=== PATIENT | male | born 1945 | race Caucasian/White ===

== ENCOUNTER 2021-12-28 08:06 | Observation (INO) ==
--- NOTE | 2021-12-05 10:50 | PAT Medication Instructions ---
Medication Instructions Date of Service December 05, 2021 Home Medications aspirin 81 mg tablet,delayed release (Adult Aspirin Regimen) 81 mg PO QAM finasteride 5 mg tablet (Proscar) 5 mg PO HS losartan 100 mg tablet 100 mg PO QPM omeprazole 40 mg capsule,delayed release 40 mg PO QAM simvastatin 20 mg tablet 20 mg PO QPM tamsulosin 0.4 mg capsule 0.4 mg PO QPM amino acids (Amino Acid capsule) 1 cap PO UD cetirizine 10 mg tablet (Zyrtec) 10 mg PO QAM etodolac 300 mg capsule 300 mg PO UD PRN trazodone 50 mg tablet 50 mg PO HS ASK your surgeon for instructions etodolac 300 mg capsule 300 mg PO UD PRN STOP taking 2 weeks before surgery amino acids (Amino Acid capsule) 1 cap PO UD DO NOT take the morning of surgery cetirizine 10 mg tablet (Zyrtec) 10 mg PO QAM Take morning of surgery With a small sip of water, OTHERWISE NOTHING TO EAT OR DRINK AFTER MIDNIGHT: aspirin 81 mg tablet,delayed release (Adult Aspirin Regimen) 81 mg PO QAM (unless directed otherwise by surgeon) omeprazole 40 mg capsule,delayed release 40 mg PO QAM Take evening before surgery finasteride 5 mg tablet (Proscar) 5 mg PO HS losartan 100 mg tablet 100 mg PO QPM simvastatin 20 mg tablet 20 mg PO QPM tamsulosin 0.4 mg capsule 0.4 mg PO QPM trazodone 50 mg tablet 50 mg PO HS Other Notes If you have any questions please call us at [phone] or [phone] or [phone] or [phone]
--- NOTE | 2021-12-10 09:04 | Anesthesiology Consultation ---
Date of Service December 10, 2021 Assessment & Plan (1) Encounter for pre-operative examination: - COVID screening: Per assessment on 12/10: No known COVID-19 positive contacts or current COVID-19 related symptoms. Travel screen- returned from travel to [place] 12/09. Patient vaccinated. At surgeon discretion if preop Covid testing being done. - Vascular telemedicine visit (11/05/21): "11/01/21: CTA: Patent EVAR with preserved IIAs. Residual sac 5.2 cm. No endoleak. 11/02/20: CTA: Patent EVAR with preserved IIAs. Residual sac 5.2 cm. No endoleak.. S/P EVAR with Cook Zenith device 10/04/[address] Canseco.. Patent EVAR with no endoleak and preserved IIAs. Continue daily 81 mg aspirin for antiplatelet. Continue 20 mg Zocor for dyslipidemia.RTC in 1 year" - Outpatient joint assessment: Pt currently scheduled for inpatient pathway. If surgeon requests review for outpatient joint pathway, patient is not recommended candidate for outpatient joint program from anesthesia standpoint. Chart Review Chart Review: Acceptable Risk for Surgery and Patient seen in Pre Admission Testing Teaching & Discussion Pre-Anesthesia Teaching/Discussion Notes: Instructed NPO after midnight before surgery,except medications with 15 cc of water. Medication instructions provided according to the PAT guidelines. History Surgery Operation Date: 12/28/21 12:20 Proposed Procedures p Right Total Knee Arthroplasty - Parminder Maloney MD Height/Weight Height: 5 ft 9.5 in Weight: 85 kg Allergies Allergy/AdvReac Type Severity Reaction Status Date / Time lisinopril AdvReac Cough Verified 12/04/21 13:25 Medications Home Medications Medication Instructions Recorded Confirmed Last Taken aspirin 81 mg tablet,delayed 81 mg PO QAM 11/02/20 12/04/21 Unknown release (Adult Aspirin Regimen) finasteride 5 mg tablet (Proscar) 5 mg PO HS 11/02/20 12/04/21 Unknown losartan 100 mg tablet 100 mg PO QPM 11/02/20 12/04/21 Unknown omeprazole 40 mg capsule,delayed 40 mg PO QAM 11/02/20 12/04/21 Unknown release simvastatin 20 mg tablet 20 mg PO QPM 11/02/20 12/04/21 Unknown tamsulosin 0.4 mg capsule 0.4 mg PO QPM 11/02/20 12/04/21 Unknown amino acids (Amino Acid capsule) 1 cap PO UD 12/04/21 12/04/21 Unknown cetirizine 10 mg tablet (Zyrtec) 10 mg PO QAM 12/04/21 12/04/21 Unknown etodolac 300 mg capsule 300 mg PO UD PRN Pain 12/04/21 12/04/21 Unknown trazodone 50 mg tablet 50 mg PO HS 12/04/21 12/04/21 Unknown Past Medical History Medical History AAA (abdominal aortic aneurysm) s/p stent (2020) Follows with [facility]/Dr. Canseco Bilateral primary osteoarthritis of knee BPH (benign prostatic hyperplasia) GERD (gastroesophageal reflux disease) Hearing deficit BL FELIPE HLD (hyperlipidemia) HTN (hypertension) Osteoarthritis Exercise / Class Metabolic Activity II 4-5 Yardwork/Stairs/Walk up hill Past Family History Family History Other No family history of adverse response to anesthesia Past Surgical History Surgical History History of AAA (abdominal aortic aneurysm) repair stent placement 09/2020 History of appendectomy History of colonoscopy History of hemorrhoidectomy Past Anesthesia History No Hx of Anesthesia Complications and No Family Hx of Anesthesia Complications History of PONV No Hx of PONV and No Hx of Motion Sickness Social History Smoking Status: Former smoker Do You Dip or Chew Tobacco: No Smoking End Date: Quit > 30 years ago Hx Alcohol Use: No Hx Substance Use: No substance use type: does not use Review of Systems Patient denies chest pain, shortness of breath, dyspnea on exertion, fever, chills, cough, wheezing, palpitations. Physical Exam Vital Signs VITALS/ BP 129/75 P 73 TEMP 97.8 SP02 94%RA RESP 18 PHYSICAL Full cervical extension range of motion. Full TMJ range of motion. TMD 3 finger breaths Mallampati Score 2 Dentition: missing molars, possible crown Lungs: clear throughout to auscultation Cardiac: regular rate and rhythm, no murmurs noted Spine: normal Carotid arteries: negative bruit Extremities: no edema Lab Results Anesthesia Preop Results Results Anesthesia Widget: WBC 8.12 K/ul (4.8-10.8) 12/10/21 Hgb 15.0 g/dl (14.0-18.0) 12/10/21 Hct 44.3 % (40.1-51.0) 12/10/21 Plt 230 K/uL (130-400) 12/10/21 Na 138 mmol/L (136-145) 12/10/21 K 4.0 mmol/L (3.5-5.1) 12/10/21 Cl 106 mmol/L (98-107) 12/10/21 CO2 25 mmol/L (21-32) 12/10/21 BUN 20 mg/dl (6-23) 12/10/21 Creat 1.04 mg/dl (0.6-1.4) 12/10/21 Glucose Level 98 mg/dl (70-99(Fasting)) 12/10/21 PT 10.7 Seconds (9.0-12.0) 12/10/21 PTT 24.7 Seconds (21.0-31.0) 12/10/21 INR 1.0 (0.9-1.1) 12/10/21 Blood Type A Positive 12/10/21 Antibody Screen NEGATIVE 12/10/21 Testing Electrocardiogram Date: 12/10/21 Findings: + NSR @ (67) Chest X-Ray Date: 12/10/21 Findings: + NAD COVID-19 Risk Screen Screening Information COVID-19 Screen Date: 12/10/21 Exposure 21 Days Family/Household +COVID Last 21 Days: No Exposure 10 Days Any COVID Exposure Last 10 Days: No Symptoms Last 10 Days Experienced COVID Sx Last 10 Days: No + COVID 0-90 Days COVID + in Last 0-90 Days: No
--- NOTE | 2021-12-22 17:30 | History and Physical Report ---
DATE OF ADMISSION: 12/28/2021. CHIEF COMPLAINT: Bilateral knee pain and discomfort, right side greater than left. HISTORY OF PRESENT ILLNESS: The patient is a 76-year-old gentleman and a brother of a previous patie nt of mine, Enrrique Ryder, who presents for surgical treatment of his knees. He has got a long histo ry of knee pain and discomfort that has gotten worse over the past year to year and a half. We then put shots in his knees, which helped some, but it has become less successful. The right knee is both ering more than the left. He hurts all the time. The more he is up and on his legs, the more it yaneli ts. Limps more as the day goes on. He would like to consider getting his knee fixed. PAST MEDICAL HISTORY: 1. Hypertension. 2. Elevated cholesterol. PAST SURGICAL HISTORY: Includes: 1. Appendectomy. 2. Hemorrhoid surgery. 3. Aortic aneurysm done at [facility] about a year and a half ago. ALLERGIES: LISINOPRIL. CURRENT MEDICATIONS: 1. Aspirin. 2. Proscar. 3. Losartan. 4. Omeprazole. 5. Simvastatin. 6. Tamsulosin. 7. Tramadol. 8. Trazodone. 9. Multivitamin. SOCIAL HISTORY: A 76-year-old male. He is from [place]. He is . Two children. Does not drink. FAMILY HISTORY: Noncontributory. REVIEW OF SYSTEMS: Significant for AAA repair at [facility] year and a half ago. He has done well fr om this. No chest pain or shortness of breath. No history of DVT or PE. PHYSICAL EXAMINATION: GENERAL: Shows a pleasant middle-aged male. Looks to be in good health. HEENT: Benign. NECK: Supple. No lymphadenopathy. LUNGS: Clear to auscultation. HEART: Regular rate and rhythm. ABDOMEN: Soft, nontender, nondistended. EXTREMITIES: Grossly neurovascularly intact except as follows. Examination of both knees revealed patient ambulates independently. He has got varus alignment to rafaela th knees. Examination of the right knee reveals varus alignment. He has a varus thrust with weightb earing. Tender over the medial joint line. Small knee effusion. Range of motion 5-125. No pain wi th hip motion. Examination of the left knee reveals similar varus deformity. Tender over the medial joint line. Sm all knee effusion. Range of motion 5-125. No instability. X-RAYS: Four views of both knees from today were reviewed. It shows advanced bilateral knee degener ative joint disease. Right side is slightly worse than the left. He has got complete loss of medial joint space. He has got tricompartment disease. ASSESSMENT: A 76-year-old gentleman with a history of abdominal aortic aneurysm repair in the past a t [facility] a year and a half ago with underlying hypertension, elevated cholesterol with advanced bi lateral knee degenerative joint disease. He has failed conservative care. The right knee is worse t berg the left knee, and he would like to start getting his knee fixed. PLAN: We are going to proceed with right knee replacement. The risks and benefits of this procedure were explained to the patient include but not limited to DVT, PE, , infection, neurological inj ury, vascular injury, bleeding problem, pain, limited range of motion, stiffness, failure to relieve symptoms, incomplete relief of symptoms, etc. The patient understands and desires to proceed. Infor med consent was obtained. He is . He is planning on going and staying with during elisha very. He will likely have [facility] as well. DVT prophylaxis will be aspirin twice a da y. Job ID: [id number]
[~2021-12-28 08:06] MED LIST: ACETAMINOPHEN 500 MG TAB PO SCH; BUPIVACAINE 0.5 % 5 MG/1 ML PF 10ML VIAL ONE; BUPIVACAINE LIPOSOME/PF 266 MG, BUPIVACAINE/EPINEPHRINE 50 ML, SODIUM CHLORIDE 0.9% 30 ... INFIL SCH; CeleBREX 200 MG CAP PO SCH; EPINEPHrine INJ 1 MG/ML AMP ONE; FAMOTIDINE 20 MG TAB PO SCH; LR 500ML BOLUS, THEN 15ML/HR IV SCH; LR 60ML/HR IV SCH; METOCLOPRAMIDE HCL 10 MG TABLET PO SCH; ROPIVACAINE 0.5% 5 MG/ML 30 ML VIAL ONE; TRANEXAMIC ACID 1,000 MG **IV Intra-op IV SCH; ceFAZolin 2000MG 2,000 MG/15 ML SYR IV SCH
--- NOTE | 2021-12-28 08:59 | History & Physical Bridge Note ---
Date of Service December 28, 2021 History & Physical Bridge Note I have examined the patient, reviewed the History & Physical and in the interval since the performance of the History & Physical I have noted the following changes of clinical significance: no changes noted
[2021-12-28] MEDS ORDERED: MIDAZOLAM HCL 1 MG/ML 2ML VIAL ONE (10:07)
[2021-12-28] MEDS ORDERED: fentaNYL citrate 100 MCG/2 ML VIAL ONE (10:07)
[2021-12-28] MEDS ORDERED: BUPIVACAINE LIPOSOME 1.3% 266 MG/20 ML VIAL ONE (11:11)
[2021-12-28] MEDS ORDERED: BUPIVACAINE/EPINEPHRINE 0.25% 1:200,000 30 ML VIAL ONE (11:11)
[2021-12-28] MEDS ORDERED: SODIUM CHLORIDE 0.9% PF 50 ML VIAL ONE (11:11)
[2021-12-28] MEDS ORDERED: ePHEDrine sulfate 50 MG/ML AMP IV PRN (11:33)
[2021-12-28] MEDS ORDERED: ATROPINE SULFATE 0.1 MG/ML 10ML SYR IV PRN (11:33)
[2021-12-28] MEDS ORDERED: LIDOCAINE 2% MPF LOCAL 5 ML VIAL INFIL ONE (12:41)
[2021-12-28] MEDS ORDERED: PROPOFOL IV EMULSION 10 MG/ML 20 ML VIAL IV ONE (12:41)
[2021-12-28] MEDS ORDERED: ePHEDrine sulfate 50 MG/ML AMP ONE (12:49)
[2021-12-28] MEDS ORDERED: PHENYLEPHRINE HCL 10 MG/ML VIAL ONE (12:49)
--- NOTE | 2021-12-28 13:10 | Operative Report ---
PG Post Operative Report Pre & Post Diagnosis Operation Date: 12/28/21 10:40 Pre-Op Diagnosis: Right Knee Degenerative Joint Disease Post-Op Diagnosis: Right Knee Degenerative Joint Disease I identified the patient and participated in the time-out.: Yes Procedure Operation Date: 12/28/21 10:40 Actual Procedures p Right Total Knee Arthroplasty(Right) - Parminder Maloney MD Surgeon Parminder Maloney MD Soil Scientist Clayton Chin PA-C Estimated Blood Loss 50 Findings Consistent with Post-Op Diagnosis Operative findings real advanced right knee DJD. Extensive grade 4 [id number] disease of the medial and patellofemoral compartments. He had a varus deformity to his knee. Moderate-sized joint effusion. Fluids 1400 cc Specimens Right knee sent for pathology Drains None Anesthesia Type Spinal MAC Complications none Disposition Accompanied Patient To Recovery: No Indications Patient is a 76-year-old gentleman has had a long history of gradually progressively increasing right knee pain discomfort. He has been through extensive conservative treatment which became less successful over time. X-rays show advanced right knee arthritis. He elected proceed with surgical treatment. Description of Procedure Operative implants consist of: 1 Biomet Vanguard size 70 right posterior stabilized femoral component. 2. Biomet size 75 tibial tray. 3. 10 mm posterior stabilized polyethylene insert. 4. 31 x 8 all Paller patella. The patient was taken the operating, identified, placed on the operating table supine position protectors were properly padded. IV antibiotics tried by anesthesia team. A spinal anesthetic and been implemented in the holding area along with an abductor canal block. Tate catheter was placed in sterile fashion. A right thigh tourniquet was then placed in the right lower extremities then prepped and draped in usual sterile fashion. Right leg was elevated exsanguinated with use of an Esmarch and the tourniquet was set at 300 mmHg. An anterior approach of the right knee was then performed to longitudinal incision centered over the patella. Sharp dissection was carried through subcutaneous tissue down the extensor mechanism. Medial parapatellar arthrotomy incision was made. Some subperiosteal dissection was carried out medially. The fat pad was resected from Neath patella tendon. Lateral patellofemoral ligament was released. Patella was subluxated laterally and the knee was flexed. The osteophytes were taken off distal femur. The ACL and PCL were then released from distal femur the tibia subluxated anteriorly. The external tibial alignment jig was then placed in the interface the tibia and adjusted 14 mm medially. Proximal tibial cut was made remove about a millimeter or 2 of bone from most deficient aspect medial tibial plateau. The tibia was then sized to a size 75. Attention drawn the femur. The distal femur examined the sharp drill. Intramedullary canal was suction. A right 6 degree valgus cutting guide was placed. Distal femoral cutting block was pinned in place. Distal femoral cut was made to take an additional 3 mm bone off distal femur. The femur was then sized to a size 70. The AP cutting block was pinned parallel to the epicondylar axis which was 4 degrees of external rotation. Anterior cut, anterior chamfer, posterior cut, posterior chamfer cuts were made. The box cutting guide was placed in a just slight lateral box cut was made. The knee was flexed. The remnants of the medial and lateral menisci were excised. The osteophytes were taken off the posterior aspect of the femur. Trial femoral component was placed. The tibial tray was pinned in maximum external rotation and the drill and stem punch were used to create defect in proximal tibia for the tibial tray. Knee was then trialed and the 10 mm insert fit most appropriately. Attention drawn the patella. The patella was cleaned of all soft tissues. Patella thickness measured 22 mm in thickness was cut down to 14. It was sized to a size 31 patella. The lug holes were drilled for the 31 patella. Lateral osteophytes removed. Patella button was placed. Knee was taken through range of motion patella tracked nicely with no thumbs test. Attention drawn to place the permanent components. Nupathe all trial components were removed. Bone plug was placed in the distal femur limit blood loss. Double batch Palacos G cement was mixed. Biomet Vanguard size 70 right posterior stabilized femoral component, size 75 tibial tray, a 10 mm posterior stabilized polyethylene insert, a 31 x 8 all Paller patella then cemented in place. Knee was brought out into full extension until cement hardened. Final cement check was then performed. Pericapsular tissues were injected with total of 100 cc of combination of 20 cc of Exparel, 30 cc normal saline, 50 cc of quarter percent Marcaine with epinephrine. Patient did receive 1 g tranexamic acid. The tourniquet was then let down for final turn time of 54 minutes. Hemostasis assured use electrocautery. Extensor mechanism closed with combination 1 PDS suture #1 Vicryl suture in [id number] fashion with extensor mechanism checked found to be intact the subcutaneous tissue then closed with 2 Dexon suture in buried knot fashion skin was closed skin daniela. Leg was then cleaned and dried a sterile dressing was Xeroform, 4 fours, sterile cast padding, Diomedes bandage were applied. Patient then transferred to the recovery room in stable condition. Patient tolerated procedure well no complications. Clayton Chin, my physician mailroom assistant, was present for the entire procedure. His assistance was essential and required for appropriate patient positioning, prepping and draping, surgical exposure, performing the technical details of the operation, placement the implants, closure of the wound, and placement of the sterile bandage. I attest to the content of the Intraoperative Record and any orders documented therein. Any exceptions are noted below.
--- NOTE | 2021-12-28 13:31 | XRay Report ---
XR knee RT 1 or 2V routine CLINICAL HISTORY: Postoperative evaluation. COMPARISON: Knee radiographs November 22, 2021. FINDINGS: Alignment of the total right knee arthroplasty is anatomic. There is no periprosthetic fra cture or unexpected radiopaque foreign body. There are skin daniela. IMPRESSION: Expected findings following total right knee arthroplasty. ACT 112: Negative or not required by law. Electronically signed by: Rupesh Sheridan M.D. 12/28/2021 1:30 PM
--- NOTE | 2021-12-28 14:21 | Anesthesiology Progress Note ---
Date of Service December 28, 2021 Anesthesia Post Procedure Vital Signs Vital Signs: Temp Pulse Pulse Resp BP Pulse Ox O2 Del Method 12/28/21 14:10 67 17 120/68 93 Room Air 12/28/21 14:00 36.6 C 68 20 127/74 93 Room Air 12/28/21 13:50 66 18 126/66 94 Room Air 12/28/21 13:40 65 16 127/67 94 Room Air 12/28/21 13:30 70 17 119/62 94 Oxymask 12/28/21 13:20 70 16 120/68 98 Oxymask 12/28/21 13:10 36.8 C 72 12 115/54 L 98 Oxymask 12/28/21 08:31 36.3 C L 74 20 150/87 H 96 Room Air O2 Flow Rate 12/28/21 14:10 12/28/21 14:00 12/28/21 13:50 12/28/21 13:40 12/28/21 13:30 4 12/28/21 13:20 6 12/28/21 13:10 8 12/28/21 08:31 Pain Intensity Right Knee: Pain Intensity: 5 Transfer of Care Handoff Completed per policy Notes Mental Status: alert / awake / arousable Patient Amnestic to Procedure: Yes Nausea / Vomiting: adequately controlled Pain: adequately controlled Airway Patency, RR, SpO2: stable & adequate BP & HR: stable & adequate Hydration State: stable & adequate Neuraxial Anesthesia: was administered and sensory block is resolving Anesthetic Complications: no major complications apparent
[2021-12-28] MEDS ORDERED: ALUMINUM/MAGNESIUM SUSP 30 ML UDC PO PRN (15:20)
[2021-12-28] MEDS ORDERED: NALOXONE HCL 0.4 MG/1 ML VIAL/CARP IV PRN (15:20)
[2021-12-28] MEDS ORDERED: METOCLOPRAMIDE HCL INJ 5 MG/ML 2 ML VIAL IV PRN (15:20)
[2021-12-28] MEDS ORDERED: MAGNESIUM HYDROXIDE SUSP 30 ML UDC PO PRN (15:20)
[2021-12-28] MEDS ORDERED: NON-FORMULARY MEDICATION (Amino Acids [Amino Acid] Capsule) PO SCH (15:20)
[2021-12-28] MEDS ORDERED: HYDROmorphone INJ 0.5 MG/0.5 ML SYR IV PRN (15:20)
[2021-12-28] MEDS ORDERED: bisacodyL 10 MG SUPP PR PRN (15:20)
[2021-12-28] MEDS ORDERED: ACETAMINOPHEN 500 MG TAB ONE (15:42)
[2021-12-28] MEDS ORDERED: KETOROLAC 30 MG/ML VIAL ONE (15:42)
[2021-12-28] MEDS: ACETAMINOPHEN 500 MG TAB PO SCH ×2 (15:44→20:23)
[2021-12-28] MEDS: KETOROLAC TROMETHAMINE 15 MG/ML VIAL IV SCH ×2 (15:45→20:23)
[2021-12-28] MEDS: SODIUM CHLORIDE 0.9% 1000ML 1,000 ML IV SCH (16:15)
[2021-12-28] MEDS: ASCORBIC ACID 500 MG TAB PO SCH (17:54)
[2021-12-28] MEDS: ceFAZolin 2000MG 2,000 MG/15 ML SYR IV SCH (19:09)
[2021-12-28] MEDS ORDERED: TRANEXAMIC ACID / 0.7% NACL 1,000 MG/100 ML BAG IV SCH (19:15)
[2021-12-28] MEDS: ONDANSETRON INJ 2 MG/ML 2 ML VIAL IV PRN (19:16)
[2021-12-28] MEDS: DOCUSATE SODIUM 100 MG CAP PO SCH (20:22)
[2021-12-28] MEDS: ASPIRIN 81 MG ECTAB PO SCH (20:22)
[2021-12-28] MEDS ORDERED: SIMVASTATIN 20 MG TAB PO SCH (21:00)
[2021-12-28] MEDS ORDERED: TAMSULOSIN HCL 0.4 MG CAP PO SCH (21:00)
[2021-12-28] MEDS ORDERED: FINASTERIDE 5 MG TAB PO SCH (21:00)
[2021-12-28] MEDS ORDERED: traZODone HCL 50 MG TAB PO SCH (21:00)
[2021-12-28] MEDS ORDERED: SENNA 8.6 MG TAB PO SCH (21:00)
[2021-12-28] MEDS ORDERED: LOSARTAN POTASSIUM 50 MG TAB PO SCH (21:00)
[2021-12-28] MEDS: oxyCODONE HCL IR 5 MG TAB (IMMEDIATE RELEASE) PO PRN (23:33)
[2021-12-29] MEDS: SODIUM CHLORIDE 0.9% 1000ML 1,000 ML IV SCH (02:16)
[2021-12-29] MEDS: ceFAZolin 2000MG 2,000 MG/15 ML SYR IV SCH (02:48)
[2021-12-29] MEDS: KETOROLAC TROMETHAMINE 15 MG/ML VIAL IV SCH ×2 (02:48→08:32)
[2021-12-29] MEDS: ONDANSETRON INJ 2 MG/ML 2 ML VIAL IV PRN ×2 (02:57→10:26)
[2021-12-29] MEDS: ACETAMINOPHEN 500 MG TAB PO SCH (05:42)
[2021-12-29] MEDS ORDERED: dexAMETHasone 10 MG in SYRINGE 0 ML IV SCH (08:00)
[2021-12-29] MEDS: ASPIRIN 81 MG ECTAB PO SCH (08:20)
[2021-12-29] MEDS: DOCUSATE SODIUM 100 MG CAP PO SCH (08:20)
[2021-12-29] MEDS: ASCORBIC ACID 500 MG TAB PO SCH (08:21)
[2021-12-29] MEDS: oxyCODONE HCL IR 5 MG TAB (IMMEDIATE RELEASE) PO PRN (08:31)
[2021-12-29 08:53] LABS: Hemoglobin 11.5 g/dl (14.0-18.0); Mean Corpuscular Hgb Conc 33.8 g/dL (32.0-36.0); Mean Corpuscular Volume 94.7 fL (80.0-100.0); Mean Platelet Volume 9.4 fL (9.4-12.4); Platelet Count 185 K/uL (130-400); RDW Coefficient of Variation 12.9 % (11.5-14.5); RDW Standard Deviation 44.9 fL (36.4-46.3); Red Blood Count 3.59 M/uL (4.63-6.08); White Blood Count 9.34 K/ul (4.8-10.8)
[2021-12-29] MEDS ORDERED: CETIRIZINE HCL 10 MG TABLET PO SCH (09:00)
[2021-12-29] MEDS ORDERED: DOCUSATE SODIUM/SENNA 50/8.6MG TAB PO SCH (09:00)
[2021-12-29] MEDS ORDERED: PANTOprazole 40 MG TAB PO SCH (09:00)
[2021-12-29] MEDS ORDERED: MULTIVITAMIN TAB PO SCH (09:00)
--- NOTE | 2021-12-29 09:03 | Progress Notes ---
DATE OF SERVICE: 12/29/2021. SUBJECTIVE: A 76-year-old gentleman, postoperative day 1 from right knee replacement. He is doing p retty well. The pain has been controlled. No chest pain or shortness of breath. Not feeling dizzy or lightheaded. OBJECTIVE: VITAL SIGNS: Temperature is 36.5. Vital signs are stable. GENERAL: Shows a pleasant, elderly male. He is sitting up in bed this morning, looks pretty comfort able. LUNGS: Clear to auscultation. HEART: Has a regular rate and rhythm. ABDOMEN: Soft, nontender, nondistended. EXTREMITIES: Grossly neurovascularly intact except as follows: Examination of the right leg reveals the dressing to be clean, dry and intact. Leg is well aligned. He can dorsiflex and plantarflex hi s foot appropriately. He can do a straight leg raise, but takes quite a bit of effort. No pain with hip motion. LABORATORY DATA: Hemoglobin is pending. Electrolytes are pending. ASSESSMENT: A 76-year-old gentleman, postoperative day 1 from right knee replacement, clinically doi ng well. He looks good. Pain is controlled. He is neurologically intact. PLAN: 1. DVT prophylaxis includes thigh-high TEDs, SCDs, and aspirin twice a day. 2. PT/OT, weightbear as tolerated. Right total knee protocol. 3. Pain control, doing okay with current pain regimen. 4. Disposition: Plan to discharge to home with some home health if he does okay in therapy today. Job ID: [id number]
[2021-12-29 09:37] LABS: BUN Creatinine Ratio 17.7 (10-20); Calcium 7.8 mg/dl (8.5-10.1); Creatinine Clr Calc Pharmacy 65.5 ml/min; Est GFR (Non-African American) 75.9 ml/min; Potassium 3.8 mmol/L (3.5-5.1)
--- NOTE | 2021-12-31 07:48 | Discharge Summary ---
Date of Service December 31, 2021 Discharge Data Procedures Performed Operation Date: 12/28/21 10:40 Actual Procedures p Right Total Knee Arthroplasty(Right) - Parminder Maloney MD Hospital Course (1) Status post total right knee replacement: This is a 76 year old patient admitted on 12/28/21 and underwent total knee arthroplasty. He tolerated the procedure well and there were no complications. Transferred to the PACU post op and later to the orthopedic floor for further care. He was given ancef for antibiotic prophylaxis. He was also given JACY stockings, SCDs, and aspirin for DVT prophylaxis. Hemoglobin, hematocrit, and vital signs were monitored during his hospital stay and remained stable. Did not require any blood transfusions. There were no complications during his hospital stay. By post op day #1 the patient was tolerating a regular diet, pain was reasonably controlled with oral pain medicine, and he was participating in physical therapy. On post op day #1 the patient was discharged home and set up with home health care. He was given printed discharge instructions including prescriptions for extra strength tylenol, aspirin, ketorolac, zofran, senokot, flomax, and oxycodone. Continue physical therapy, weight bearing as tolerated. Continue JACY stockings. Follow up approximately 2 weeks post op or sooner if there are problems or concerns. Coding Level of Care Code None Diagnoses Status post total right knee replacement Z96.651
== END 2021-12-29 13:37 | disposition home health service (06) ==
LOC: PACUINP 08:06 → ASU 08:06 → 3W 16:13

== ENCOUNTER 2022-06-17 08:24 | Observation (INO) ==
--- NOTE | 2022-05-28 09:21 | PAT Medication Instructions ---
Medication Instructions Date of Service May 28, 2022 Home Medications Medication Instructions Recorded amoxicillin 500 mg tablet 2,000 mg PO ONCE #4 tabs 05/27/22 finasteride 5 mg tablet (Proscar) 5 mg PO HS losartan 100 mg tablet 100 mg PO QPM omeprazole 40 mg capsule,delayed release 40 mg PO QAM simvastatin 20 mg tablet 20 mg PO QPM cetirizine 10 mg tablet (Zyrtec) 10 mg PO QAM trazodone 50 mg tablet 50 mg PO HS amoxicillin 500 mg tablet 2,000 mg PO ONCE aspirin 81 mg tablet,delayed release (Hollie Low Dose Aspirin) 81 mg PO QAM tamsulosin 0.4 mg capsule (Flomax) 0.4 mg PO HS Continue as directed amoxicillin 500 mg tablet 2,000 mg PO ONCE (prior to procedure) DO NOT take the morning of surgery cetirizine 10 mg tablet (Zyrtec) 10 mg PO QAM Take morning of surgery With a small sip of water, OTHERWISE NOTHING TO EAT OR DRINK AFTER MIDNIGHT: omeprazole 40 mg capsule,delayed release 40 mg PO QAM aspirin 81 mg tablet,delayed release (Hollie Low Dose Aspirin) 81 mg PO QAM (continue as normal unless told otherwise by surgeon) Take evening before surgery finasteride 5 mg tablet (Proscar) 5 mg PO HS losartan 100 mg tablet 100 mg PO QPM simvastatin 20 mg tablet 20 mg PO QPM trazodone 50 mg tablet 50 mg PO HS tamsulosin 0.4 mg capsule (Flomax) 0.4 mg PO HS Other Notes If you have any questions please call us at [phone] or [phone] or [phone] or [phone]
--- NOTE | 2022-06-12 09:11 | Anesthesiology Consultation ---
Date of Service June 12, 2022 Assessment & Plan (1) Encounter for pre-operative examination: - S vascular 11/05/21: "...AAA reached surgical size and underwent EVAR with Cook Zenith device 10/04/[address] Canseco. He had a Type 2 endoleak on completion angio; however, resolved on 1 month post-op CTA...Patent EVAR with no endoleak and preserved IIAs. Continue daily 81 mg aspirin for antiplatelet. Continue 20 mg Zocor for dyslipidemia. RTC in 1 year..." - s/p R TKA 12/28/21 SAB L3-L4 1 attempt + PNB. - Outpatient joint assessment: Patient is currently scheduled for inpatient pathway. If re-evaluated pending system levels during current pandemic/surgeon requests outpatient pathway, patient is not recommended candidate for outpatient joint program from anesthesia standpoint. Chart Review Chart Review: Acceptable Risk for Surgery and Patient seen in Pre Admission Testing Teaching & Discussion Pre-Anesthesia Teaching/Discussion Notes: Instructed NPO after midnight before surgery, except medications with 15 cc of water. Medication instructions provided according to the PAT guidelines. History Surgery Operation Date: 06/17/22 12:45 Proposed Procedures p Left Total Knee Arthroplasty - Parminder Maloney MD Height/Weight Height: 5 ft 9 in Weight: 81.647 kg Allergies Allergy/AdvReac Type Severity Reaction Status Date / Time lisinopril AdvReac Cough Verified 05/27/22 09:13 Medications Home Medications Medication Instructions Recorded Confirmed Last Taken finasteride 5 mg tablet (Proscar) 5 mg PO HS 11/02/20 05/27/22 12/27/21 21:00 losartan 100 mg tablet 100 mg PO QPM 11/02/20 05/27/22 12/27/21 21:00 omeprazole 40 mg capsule,delayed 40 mg PO QAM 11/02/20 05/27/22 12/28/21 06:30 release simvastatin 20 mg tablet 20 mg PO QPM 11/02/20 05/27/22 12/27/21 21:00 cetirizine 10 mg tablet (Zyrtec) 10 mg PO QAM 12/04/21 05/27/22 12/27/21 08:00 trazodone 50 mg tablet 50 mg PO HS 10/11/22 04/03/23 11/03/22 21:00 amoxicillin 500 mg tablet 2,000 mg PO ONCE #4 tabs 05/27/22 Unknown aspirin 81 mg tablet,delayed 81 mg PO QAM 05/27/22 05/27/22 Unknown release (Hollie Low Dose Aspirin) tamsulosin 0.4 mg capsule (Flomax) 0.4 mg PO HS 05/27/22 05/27/22 Unknown Past Medical History Medical History (Updated 06/12/22 @ 09:21 by Vilma Mcmillan PA-C) AAA (abdominal aortic aneurysm) s/p stent (2020) Follows with [facility] vascular/Dr. Canseco BPH (benign prostatic hyperplasia) GERD (gastroesophageal reflux disease) controlled, stable per pt Hearing deficit BL FELIPE HLD (hyperlipidemia) HTN (hypertension) controlled, stable per pt Prediabetes Patient denies h/o stroke, seizures, heart attack, heart failure, blood clots or blood transfusions. Exercise / Class Metabolic Activity II 4-5 Yardwork/Stairs/Walk up hill (denies chest discomfort or shortness of breath with 1 FOS) Past Family History Family History Other No family history of adverse response to anesthesia Past Surgical History Surgical History History of AAA (abdominal aortic aneurysm) repair stent placement 09/2020 History of appendectomy History of colonoscopy History of hemorrhoidectomy History of total right knee replacement Past Anesthesia History No Hx of Anesthesia Complications and No Family Hx of Anesthesia Complications History of PONV History of PONV (occasional nausea) and Hx of Motion Sickness Social History Smoking Status: Former smoker tobacco type: cigarettes Do You Dip or Chew Tobacco: No Smoking End Date: MORE THAN 30 YEARS AGO Hx Alcohol Use: Yes Alcohol type: beer alcohol intake frequency: other Alcohol Intake Frequency Comment: RARELY Hx Substance Use: No substance use type: does not use Review of Systems Patient denies chest pain, shortness of breath, dyspnea on exertion, snoring, witnessed apneas, fever, chills, cough, wheezing, or palpitations. Physical Exam Vital Signs Vitals BP 128/73 P 75 TEMP 97.4 SP02 94% on RA RESP 18 Physical Full cervical extension range of motion without pain TMD 3.5 finger breadths Mallampati Score 2 Dentition: several caps, denies chipped or loose teeth, implants or bridges Lungs: normal respiratory effort. Clear throughout to auscultation, no adventitious breath sounds Cardiac: regular rate and rhythm, no murmurs noted Carotid arteries: negative bruit bilat Lab Results Anesthesia Preop Results Results Anesthesia Widget: WBC 6.28 K/ul (4.8-10.8) 06/12/22 Hgb 14.4 g/dl (14.0-18.0) 06/12/22 Hct 42.5 % (42.0-52.0) 06/12/22 Plt 240 K/uL (130-400) 06/12/22 Na 137 mmol/L (136-145) 06/12/22 K 3.9 mmol/L (3.5-5.1) 06/12/22 Cl 107 mmol/L (98-107) 06/12/22 CO2 24 mmol/L (21-32) 06/12/22 BUN 17 mg/dl (6-23) 06/12/22 Creat 0.92 mg/dl (0.6-1.4) 06/12/22 Glucose Level 122 mg/dl (70-99(Fasting)) H 06/12/22 PT 10.8 Seconds (9.0-12.0) 06/12/22 PTT 25.1 Seconds (21.0-31.0) 06/12/22 INR 1.0 (0.9-1.1) 06/12/22 Blood Type A Positive 06/12/22 Antibody Screen NEGATIVE 06/12/22 Testing Electrocardiogram Date: 12/10/21 NSR, rate 67 bpm Chest X-Ray Date: 12/10/21 No lines and tubes are seen. The cardiomediastinal silhouette is normal. The lungs are clear. No evidence of pleural effusion or pneumothorax. Degenerative changes are seen in the spine. IMPRESSION: No acute chest disease. Echocardiogram Date: 08/25/19 EF 55-59% No LV segmental wall motion abnormalities Aortic root mildly enlarged, aortic arch mildly dilated Mild aortic valve regurgitation Mild tricuspid regurgitation Grade I diastolic dysfunction Other Testing CTA abdomen pelvis 11/01/21 Status post EVAR. No stent graft migration or endoleak. Aneurysm sac is unchanged in size from 11/02/2020 COVID-19 Risk Screen Screening Information COVID-19 Screen Date: 06/12/22 Exposure 21 Days Family/Household +COVID Last 21 Days: No Exposure 10 Days Any COVID Exposure Last 10 Days: No Symptoms Last 10 Days Experienced COVID Sx Last 10 Days: No + COVID 0-90 Days COVID + in Last 0-90 Days: No
[~2022-06-17 08:24] MED LIST changes: -BUPIVACAINE LIPOSOME/PF 266 MG, BUPIVACAINE/EPINEPHRINE 50 ML, SODIUM CHLORIDE 0.9% 30 ... INFIL SCH; +BUPIVACAINE LIPOSOME/PF 266 MG, BUPIVACAINE/EPINEPHRINE 50 ML, SODIUM CHLORIDE 0.9% PF ... INFIL SCH; -EPINEPHrine INJ 1 MG/ML AMP ONE; +dexAMETHasone**PF** 10 MG/ML VIAL IV SCH
--- NOTE | 2022-06-17 08:50 | History & Physical Bridge Note ---
Date of Service June 17, 2022 History & Physical Bridge Note I have examined the patient, reviewed the History & Physical and in the interval since the performance of the History & Physical I have noted the following changes of clinical significance: no changes noted
[2022-06-17] MEDS ORDERED: PROPOFOL IV EMULSION 10 MG/ML 20 ML VIAL IV ONE (09:05)
[2022-06-17] MEDS ORDERED: MIDAZOLAM HCL 1 MG/ML 2ML VIAL ONE ×2 (09:05→11:36)
[2022-06-17] MEDS ORDERED: ONDANSETRON INJ 2 MG/ML 2 ML VIAL ONE (09:05)
[2022-06-17] MEDS ORDERED: LIDOCAINE 2% MPF LOCAL 5 ML VIAL ONE (09:05)
[2022-06-17] MEDS ORDERED: fentaNYL citrate PF 100 MCG/2 ML VIAL ONE (09:05)
[2022-06-17] MEDS ORDERED: ONDANSETRON INJ 2 MG/ML 2 ML VIAL IV PRN ×2 (09:33→14:35)
[2022-06-17] MEDS ORDERED: ATROPINE SULFATE 0.1 MG/ML 10ML SYR IV PRN (09:33)
[2022-06-17] MEDS ORDERED: fentaNYL citrate PF 100 MCG/2 ML VIAL IV PRN (09:33)
[2022-06-17] MEDS ORDERED: ePHEDrine sulfate 50 MG/ML AMP IV PRN (09:33)
[2022-06-17] MEDS ORDERED: SODIUM CHLORIDE 0.9% PF 50 ML VIAL ONE (10:13)
[2022-06-17] MEDS ORDERED: BUPIVACAINE/EPINEPHRINE 0.25% 1:200,000 30 ML VIAL ONE (10:13)
[2022-06-17] MEDS ORDERED: BUPIVACAINE LIPOSOME 1.3% 266 MG/20 ML VIAL ONE (10:13)
--- NOTE | 2022-06-17 12:15 | Operative Report ---
PG Post Operative Report Pre & Post Diagnosis Operation Date: 06/17/22 10:40 Pre-Op Diagnosis: Left Knee Degenerative Joint Disease Post-Op Diagnosis: Left Knee Degenerative Joint Disease I identified the patient and participated in the time-out.: Yes Procedure Operation Date: 06/17/22 10:40 Actual Procedures p Left Total Knee Arthroplasty(Left) - Parminder Maloney MD Surgeon Parminder Maloney MD Production Hand Clayton Chin PA-C Estimated Blood Loss 50 Findings Consistent with Post-Op Diagnosis Operative findings reveal advanced left knee DJD. He had extensive grade 4 [id number] disease of the medial and patellofemoral compartments. He had a varus deformity to his knee with a slight flexion contracture and large knee joint effusion. Specimens Left knee sent for pathology Anesthesia Type Spinal MAC Complications none Indications Patient 77-year-old fairly active gentleman said a long history of bilateral knee pain discomfort. He has been through extensive conservative treatment over the years with just became less successful over time. He has right knee replaced about 5 and half months ago and is done well from this. He continued be limited by left knee pain discomfort. He elected proceed with left total knee arthroplasty. Description of Procedure Operative implants consist of: 1. Biomet Vanguard size 70 left posterior stabilized femoral component. 2. Biomet size 75 tibial tray. 3. 12 mm posterior stabilized polyethylene insert. 4. 31 x 8 all poly patella. The patient was taken the operating, identified, and placed on the operating table supine position protectors were properly padded. IV antibiotics tried by anesthesia team. A spinal anesthetic and abductor canal block had been provided in the holding area. Tate catheter was placed in sterile fashion. Left atrium was then placed in the left lower extremities then prepped and draped in usual sterile fashion. The left leg was elevated exsanguinated with use of an Esmarch in terms playset 300 mmHg. An anterior approach left knee was then performed to longitudinal incision centered over the patella. Sharp dissection was carried through subcutaneous tissue down to the extensor mechanism. A medial parapatellar art hrotomy incision was made. Some subperiosteal dissection skin medially. The fat pad was dissected from Neath patella tendon. Lateral patellofemoral ligament was released. The patella subluxated laterally and the knee was flexed. The osteophytes taken on distal femur. The ACL and PCL were then released from distal femur the tibia subluxated anteriorly. External tibial alignment jig was then placed in the interface the tibia and adjusted 14 mm medially. Proximal tibial cut was made remove about 2 mm of bone from the most deficient aspect medial tibial plateau. The tibia was sized to a size 75. Some osteophytes taken off medial and posterior medially. Attention drawn the femur. The distal femur was entered with a sharp drill. Intramedullary canal was suction. The left 6 degree valgus cutting guide was placed. Distal femoral cutting block was pinned in place. Distal femoral cut was made to take an additional 3 mm of bone off distal femur. The femur was then sized to a size 70. The AP cutting block was pinned parallel to the epicondylar axis which was 5 degrees of external rotation. The anterior cut, anterior chamfer, posterior cut, posterior chamfer cuts were made. The box cutting guide was placed in just slight lateral and the box cut was made. The knee was flexed. The remnants of the medial and lateral menisci were excised. The osteophyte taken off the post erior aspect the femur. A trial femoral component was placed. The tibial tray was pinned in maximum external rotation and the drill and stem punch were used to create defect in proximal tibia for the tibial tray. The knee was then trialed and the 12 mm insert fit most appropriately. Attention drawn the patella. The patella was cleaned of all soft tissues. Patella thickness measured 22 mm in thickness was cut down to 13. Was sized to a size 31 patella. The lug holes were drilled for the 31 patella. The lateral osteophyte was removed. Patella button was placed. Knee was taken through range of motion patella tracked nicely with no thumbs test. Attention drawn to place the permanent components. All trial components were removed. Bone plug was placed in the distal femur limit blood loss. Double batch Palacos G cement was mixed. Biomet Vanguard size 70 left posterior stabilized femoral component, size 75 tibial tray, a 12 mm posterior stabilized polyethylene insert, and a 31 x 8 all Paller patella then cemented in place. Knee was brought out into full extension till cement hardened. Final cement check was then performed. Pericapsular tissues were injected with total 100 cc of combination of 20 cc of Exparel, 30 cc normal saline, 50 cc of quarter percent Marcaine with epinephrine. Patient did receive 1 g tranexamic acid. The tourniquet was then let down for final tourniquet time 56 minutes. Hemostasis assured use electrocautery. Extensor mechanism then closed with combination 1 PDS suture #1 Vicryl suture in a [id number] fashion. Extensor mechanism checked found to be intact with subcutaneous tissues then closed with 2 Dexon suture in a buried interrupted fashion skin was closed skin daniela. Leg was then cleaned and dried and sterile dressing was Xeroform, 4 fours, sterile cast padding, Diomedes bandage were applied. Patient was then transferred to the recovery room in stable condition. Patient tolerated procedure well and there were no complications. Clayton Chin, my physician technology assistant, was present for the entire procedure. His assistance was essential and required for appropriate patient positioning, prepping and draping, surgical exposure, performing the technical details of the operation, placement the implants, closure of the wound, and placement of the sterile bandage. I attest to the content of the Intraoperative Record and any orders documented therein. Any exceptions are noted below.
--- NOTE | 2022-06-17 13:59 | XRay Report ---
XR knee LT 1 or 2V routine CLINICAL HISTORY: Surgical Post Op COMPARISON: Knee radiographs May 23, 2022. FINDINGS: Alignment of the total left knee arthroplasty is anatomic. There is no periprosthetic frac ture. No unexpected radiopaque foreign bodies. There are skin daniela. IMPRESSION: Expected findings following total left knee arthroplasty. ACT 112: Negative or not required by law. Electronically signed by: Rupesh Sheridan M.D. 06/17/2022 1:58 PM
--- NOTE | 2022-06-17 14:09 | Anesthesiology Progress Note ---
Date of Service June 17, 2022 Anesthesia Post Procedure Vital Signs Vital Signs: Temp Pulse Pulse Resp BP Pulse Ox O2 Del Method 06/17/22 13:55 97.5 F L 68 16 108/69 93 Room Air 06/17/22 13:45 62 18 124/68 95 Room Air 06/17/22 13:35 65 16 116/67 95 Room Air 06/17/22 13:25 67 20 114/63 94 Room Air 06/17/22 13:15 67 14 111/65 94 Room Air 06/17/22 13:05 66 20 109/63 93 Room Air 06/17/22 12:55 63 14 100/59 L 93 Room Air 06/17/22 12:45 63 14 94/55 L 93 Room Air 06/17/22 12:35 78 18 109/64 92 Room Air 06/17/22 12:25 78 18 120/73 94 Room Air 06/17/22 12:16 97.0 F L 72 16 111/68 98 Oxymask 06/17/22 09:11 97.5 F L 71 20 155/88 H 95 Room Air O2 Flow Rate 06/17/22 13:55 06/17/22 13:45 06/17/22 13:35 06/17/22 13:25 06/17/22 13:15 06/17/22 13:05 06/17/22 12:55 06/17/22 12:45 06/17/22 12:35 06/17/22 12:25 06/17/22 12:16 6 06/17/22 09:11 Pain Intensity Left Knee: Pain Intensity: 2 Transfer of Care Handoff Completed per policy Notes Mental Status: alert / awake / arousable and participated in evaluation Patient Amnestic to Procedure: Yes Nausea / Vomiting: adequately controlled Pain: adequately controlled Airway Patency, RR, SpO2: stable & adequate BP & HR: stable & adequate Hydration State: stable & adequate Neuraxial Anesthesia: was administered and sensory block is resolving Anesthetic Complications: no major complications apparent and Pt Satisfied with anesthetic care
[2022-06-17] MEDS ORDERED: MAGNESIUM HYDROXIDE SUSP 30 ML UDC PO PRN (14:35)
[2022-06-17] MEDS ORDERED: ALUMINUM/MAGNESIUM SUSP 30 ML UDC PO PRN (14:35)
[2022-06-17] MEDS ORDERED: bisacodyL 10 MG SUPP PR PRN (14:35)
[2022-06-17] MEDS ORDERED: METOCLOPRAMIDE HCL INJ 5 MG/ML 2 ML VIAL IV PRN (14:35)
[2022-06-17] MEDS ORDERED: NALOXONE HCL 0.4 MG/1 ML VIAL/CARP IV PRN (14:35)
[2022-06-17] MEDS ORDERED: HYDROmorphone INJ 0.5 MG/0.5 ML SYR IV PRN (14:35)
[2022-06-17] MEDS ORDERED: MELATONIN 3 MG TAB PO PRN (14:40)
[2022-06-17] MEDS: SODIUM CHLORIDE 0.9% 1000ML 1,000 ML IV SCH (14:57)
[2022-06-17] MEDS: ceFAZolin 2000MG 2,000 MG/15 ML SYR IV SCH (17:26)
[2022-06-17] MEDS: KETOROLAC TROMETHAMINE 15 MG/ML VIAL IV SCH (17:29)
[2022-06-17] MEDS: ASCORBIC ACID 500 MG TAB PO SCH (17:31)
[2022-06-17] MEDS: ACETAMINOPHEN 500 MG TAB PO SCH (17:31)
[2022-06-17] MEDS ORDERED: TRANEXAMIC ACID / 0.7% NACL 1,000 MG/100 ML BAG IV SCH (18:15)
[2022-06-17] MEDS ORDERED: SIMVASTATIN 20 MG TAB PO SCH (21:00)
[2022-06-17] MEDS ORDERED: traZODone HCL 100 MG TAB PO SCH (21:00)
[2022-06-17] MEDS ORDERED: LOSARTAN POTASSIUM 50 MG TAB PO SCH (21:00)
[2022-06-17] MEDS ORDERED: SENNA 8.6 MG TAB PO SCH ×2 (21:00)
[2022-06-17] MEDS ORDERED: TAMSULOSIN HCL 0.4 MG CAP PO SCH (21:00)
[2022-06-17] MEDS ORDERED: FINASTERIDE 5 MG TAB PO SCH (21:00)
[2022-06-17] MEDS: DOCUSATE SODIUM 100 MG CAP PO SCH (21:13)
[2022-06-17] MEDS: ASPIRIN 81 MG ECTAB PO SCH (21:14)
[2022-06-18] MEDS: SODIUM CHLORIDE 0.9% 1000ML 1,000 ML IV SCH (00:12)
[2022-06-18] MEDS: KETOROLAC TROMETHAMINE 15 MG/ML VIAL IV SCH ×3 (00:12→11:52)
[2022-06-18] MEDS: ACETAMINOPHEN 500 MG TAB PO SCH ×2 (00:12→08:28)
[2022-06-18] MEDS: ceFAZolin 2000MG 2,000 MG/15 ML SYR IV SCH (02:15)
[2022-06-18] MEDS: oxyCODONE HCL IR 5 MG TAB (IMMEDIATE RELEASE) PO PRN ×2 (02:25→08:27)
[2022-06-18 06:16] LABS: Hematocrit (blood only) 33.8 % (42.0-52.0); Hemoglobin 11.7 g/dl (14.0-18.0); Mean Corpuscular Hemoglobin 31.9 pg (25.0-34.0); Mean Corpuscular Hgb Conc 34.6 g/dL (32.0-36.0); Mean Corpuscular Volume 92.1 fL (80.0-100.0); Mean Platelet Volume 9.3 fL (9.4-12.4); Platelet Count 208 K/uL (130-400); RDW Standard Deviation 43.9 fL (36.4-46.3); Red Blood Count 3.67 M/uL (4.70-6.10); White Blood Count 16.99 K/ul (4.8-10.8)
[2022-06-18 06:32] LABS: BUN Creatinine Ratio 18.9 (10-20); Calcium 8.1 mg/dl (8.6-10.3); Creatinine Clr Calc Pharmacy 64.1 ml/min; Est GFR (African American) 88.5 ml/min; Est GFR (Non-African American) 76.4 ml/min; Potassium 4.1 mmol/L (3.5-5.1)
[2022-06-18] MEDS ORDERED: dexAMETHasone 10 MG in SYRINGE 0 ML IV SCH (08:00)
[2022-06-18] MEDS: ASPIRIN 81 MG ECTAB PO SCH (08:29)
[2022-06-18] MEDS: DOCUSATE SODIUM 100 MG CAP PO SCH (08:30)
[2022-06-18] MEDS: ASCORBIC ACID 500 MG TAB PO SCH (08:30)
[2022-06-18] MEDS ORDERED: MULTIVITAMIN TAB PO SCH (09:00)
[2022-06-18] MEDS ORDERED: CETIRIZINE HCL 10 MG TABLET PO SCH (09:00)
[2022-06-18] MEDS ORDERED: PANTOprazole 40 MG TAB PO SCH (09:00)
[2022-06-18] MEDS ORDERED: NON-FORMULARY MEDICATION (Multivitamin Tablet) PO SCH (09:00)
--- NOTE | 2022-06-18 21:29 | Progress Notes ---
SUBJECTIVE: A 77-year-old gentleman postoperative day 1 from a left knee replacement. He is doing q uite well. His pain is controlled. Therapy went well. He is hoping to go home. OBJECTIVE: VITAL SIGNS: Temperature 36.4. Vital signs are stable. GENERAL: Shows a pleasant, elderly male. He is sitting up in his bedside with his legs dangling ove r the edge, looks pretty comfortable. LUNGS: Clear to auscultation. HEART: Regular rate and rhythm. ABDOMEN: Soft, nontender, nondistended. EXTREMITIES: Grossly neurovascularly intact except as follows. Examination of the left lower extremity reveals the dressing to be clean, dry and intact. Leg is wel l aligned. He can dorsiflex and plantarflex his foot appropriately. He is neurologically intact. LABORATORY DATA: Hemoglobin 11.7, hematocrit 33.8, white cell count 16.99. Electrolytes are stable. ASSESSMENT: A 77-year-old gentleman postoperative day 1 from left knee replacement, doing well. Sussy n is controlled. He is neurologically intact. He is hoping to go home. PLAN: 1. DVT prophylaxis including thigh-high TEDs, SCDs, and aspirin twice a day. 2. PT/OT, weightbear as tolerated. Left total knee protocol. 3. Pain control, doing okay with current pain regimen. 4. Disposition: Plan to discharge to home with some home health today. Job ID: [id number]
== END 2022-06-18 13:40 | disposition home health service (06) ==
LOC: 3E 08:24 → ASU 08:24